=== PATIENT | female | born 1980 | race Hispanic/Latino ===

== ENCOUNTER 2021-11-02 11:24 | Emergency (ER) | payer MEDICAID, OTHER ==
[2021-11-02] MEDS ORDERED: Acetaminophen/Codeine 30-300mg Tablet ONE (13:48)
[2021-11-02] MEDS ORDERED: Ibuprofen 200 MG TAB ONE (13:50)
== END 2021-11-02 14:00 | disposition home or self-care (01) ==
LOC: CSHERS 11:24
DX: S52.201A Unspecified fracture of shaft of right ulna, initial encounter for closed fracture (principal); W22.8XXA Striking against or struck by other objects, initial encounter

== ENCOUNTER 2025-06-09 14:32 | Emergency (ER) | payer OTHER, SELFPAY ==
[2025-06-09 16:04] LABS: ALT (SGPT) 17 U/L (Less than 34); AST (SGOT) 103 U/L (11-34); Albumin 3.9 g/dL (3.1-4.5); Alkaline Phosphatase 186 U/L (40-110); Anion Gap 14 mmol/L (10-20); BUN (Urea Nitrogen) 4 mg/dL (7.0-18.7); Bilirubin, Total 1.7 mg/dL (0.3-1.2); Calc. Creatinine Clearance 0 mL/min (70-130); Calcium 9.6 mg/dL (7.8-10.44); Carbon Dioxide 23 mmol/L (22-29); Chloride 102 mmol/L (98-107); Globulin 4.3 g/dL (2.4-3.5); Glucose 163 mg/dL (70-105); Lipase 32 U/L (8-78); Potassium 3.7 mmol/L (3.5-5.1); Sodium 135 mmol/L (136-145)
[2025-06-09 16:06] LABS: #Basophils 0.05 10x3/uL (0.0-0.2); #Eosinophils Less than 0.03 10x3/uL (0.0-0.5); #Monocytes 0.63 10x3/uL (0.0-1.1); #Neutrophils 6.62 10x3/uL (1.5-8.4); %Basophils 0.6 % (0.0-2.0); %Eosinophils 0.2 % (0.0-6.0); %Lymphocytes 16.7 % (18.0-47.0); %Monocytes 7.1 % (0.0-10.0); %Neutrophils 75.1 % (40.0-75.0); Hematocrit 39.5 % (34.9-44.5); Hemoglobin 13.7 g/dL (12.0-15.5); Mean Corpuscular Hemoglobin 37.5 pg (27.0-33.0); Mean Corpuscular Volume 108.2 fL (81.6-98.3); Platelet Count 178 10x3/uL (150-450); Red Blood Cell (RBC) Count 3.65 10x6/uL (3.90-5.03); White Blood Cell (WBC) Count 8.82 10x3/uL (3.5-10.5)
[2025-06-09 16:11] LABS: Troponin I Less than 0.010 ng/mL (< 0.028)
== END 2025-06-09 17:01 | disposition home or self-care (01) ==
LOC: CSHERS 14:32
DX: R07.89 Other chest pain (principal); F41.9 Anxiety disorder, unspecified; R79.89 Other specified abnormal findings of blood chemistry; E11.9 Type 2 diabetes mellitus without complications; I10 Essential (primary) hypertension; F17.210 Nicotine dependence, cigarettes, uncomplicated
CPT/HCPCS: 36415; 71045; 80053; 83690; 84484; 85025; 93005

== ENCOUNTER 2025-06-30 08:25 | Outpatient (CLI) | payer MEDICAID | END 2025-06-30 08:26 | disposition home or self-care (01) | LOC: CSHULT 08:25 | PROVIDERS: ATTEND Student in an Organized Health Care Education/Training Program | DX: F10.90 Alcohol use, unspecified, uncomplicated (principal); R74.8 Abnormal levels of other serum enzymes; R74.01 Elevation of levels of liver transaminase levels; K76.0 Fatty (change of) liver, not elsewhere classified | CPT/HCPCS: 76705 ==